=== PATIENT | female | born 1965 | race Caucasian/White ===

== ENCOUNTER 2024-01-02 15:35 | Outpatient (CLI) | payer OTHER | END 2024-01-02 23:59 | disposition home or self-care (01) | LOC: RAD 15:35 | PROVIDERS: ATTEND Podiatrist Foot & Ankle Surgery | DX: M19.072 Primary osteoarthritis, left ankle and foot (principal); M25.772 Osteophyte, left ankle; M85.672 Other cyst of bone, left ankle and foot; M25.472 Effusion, left ankle; M25.372 Other instability, left ankle; M21.6X2 Other acquired deformities of left foot; M25.572 Pain in left ankle and joints of left foot; M79.672 Pain in left foot; M25.375 Other instability, left foot | CPT/HCPCS: 73700 ==